=== PATIENT | male | born 1980 | race Caucasian/White ===

== ENCOUNTER → 2020-09-13 14:10 | Outpatient (CLI) | payer OTHER, SELFPAY ==
[2020-09-13 14:51] LABS: COVID19 -Nasal RAPID Negative (Negative)
== END ==
PROVIDERS: Visit Provider Family Medicine Sleep Medicine
DX: Z01.812 Encounter for preprocedural laboratory examination (principal); Z20.828 Contact with and (suspected) exposure to other viral communicable diseases
CPT/HCPCS: 87635; C9803

== ENCOUNTER → 2021-05-07 15:53 | Outpatient (CLI) | payer OTHER, SELFPAY ==
--- NOTE | 2021-05-07 | DI.ECHO.S_ITS ---
[facility]---------+ [facility] +---------+ : : [address] : [address] [address] : : : : [id number] : : : : Phone: [phone]+ Echocardiogram Report + + :Name: SHELL BROWN Study Date: 05/07/2021 Height: 71 in : :[facility] ReadingLocation: Weight: 170 lb : : Gender: Male BSA: 2.0 m2 : :: 1980 Age: 41 yrs BP: 113/78 mmHg: :Reason For Study: GENERAL ADULT EXAMINATION : :Ordering Physician: FELI THAO : :DEONTE VALDOVINOS Performed By: Polly Razo : :Referring: FELI THAO MD : + + Interpretation Summary The left ventricle is normal in size and wall thickness. Left ventricular systolic function appears normal without focal wall motion abnormalities. The ejection fraction is estimated to be 60-65%. Left ventricular global longitudinal strain average is -20.2%. Diastolic parameters suggest probable normal left ventricular diastolic function and normal filling pressures. The right ventricle is normal in size and function. Pulmonary artery pressures cannot be estimated because of the lack of a measurable TR jet velocity but the IVC suggests a CVP of around 3 mmHg. The left atrial size is normal. Right atrial size is normal. There is mild mitral regurgitation. There is no significant valvular heart disease. The aortic root is normal size. Procedure: A two-dimensional transthoracic echocardiogram with color flow and Doppler was performed. The study quality was technically adequate. There is no prior echocardiogram noted for this patient. The patient was in sinus bradycardia with heart rates between 46-57 bpm during the exam. Left Ventricle: The left ventricle is normal in size and wall thickness. Left ventricular systolic function appears normal without focal wall motion abnormalities. The ejection fraction is estimated to be 60-65%. Left ventricular global longitudinal strain average is -20.2%. Diastolic parameters suggest probable normal left ventricular diastolic function and normal filling pressures. Right Ventricle: The right ventricle is normal in size and function. Atria: The left atrial size is normal. Right atrial size is normal. There is no Doppler evidence for an interatrial shunt. Mitral Valve: The mitral valve is normal in structure and function. There is mild mitral regurgitation. Aortic Valve: The aortic valve is trileaflet. The aortic valve opens well. There is no aortic valve stenosis. No aortic regurgitation is present. Tricuspid Valve: The tricuspid valve is normal in structure and function. There is mild tricuspid regurgitation. Pulmonary artery pressures cannot be estimated because of the lack of a measurable TR jet velocity but the IVC suggests a CVP of around 3 mmHg. Pulmonic Valve: The pulmonic valve leaflets are thin and pliable; valve motion is normal. There is no pulmonic valvular regurgitation. There is no significant valvular heart disease. Great Vessels: The aortic root is normal size. The dimensions of the ascending aorta are normal. The IVC is of normal diameter and collapses greater than 50% with a sniff. This suggests a low right atrial pressure of 3 mm Hg. Pericardium/ Pleura There is no pericardial effusion. There is no pleural effusion. MMode/2D Measurements & Calculations LVIDd: 5.0 cm LVOT diam: 2.0 cm LVIDs: 3.6 cm Ao root diam: 2.6 cm FS: 28.6 % asc Aorta Diam: 2.5 cm IVSd: 0.66 cm Ao Arch Diam (Prox Trans): 2.4 cm LVPWd: 0.77 cm LV arizmendi. diameter/BSA (cm/m^2): 2.6 LV sys. diameter/BSA (cm/m^2): 1.8 LA A2 area: 16.8 cm2 RA long axis: 4.9 cm LA A4 area: 17.7 cm2 RA area: 16.6 cm2 LA length (vol): 4.9 cm RA vol: 48.4 ml LA vol: 51.2 ml RA : 24.6 ml/m2 LA vol index: 26.0 ml/m2 IVC diam: 1.8 cm RVD1 (basal): 4.0 cm TAPSE: 2.3 cm Doppler Measurements & Calculations Ao V2 max: 97.2 cm/sec LVOT Max Fabio: 86.4 cm/sec Ao V2 mean: 67.7 cm/sec LV V1 max P.0 mmHg Ao max P.8 mmHg LV V1 VTI: 19.0 cm Ao mean P.0 mmHg HAMILTON(I,D): 2.9 cm2 Ao V2 VTI: 20.9 cm HAMILTON(V,D): 2.8 cm2 sev ratio: 0.91 HAMILTON indexed to BSA (cm^2/m^2): 1.4 MV E max fabio: 88.5 cm/sec PA V2 max: 89.5 cm/sec MV A max fabio: 51.8 cm/sec PA V2 mean: 62.8 cm/sec MV E/A: 1.7 PA mean P.8 mmHg Med Peak E' Faboi: 13.2 cm/sec PA pr(Accel): 37.9 mmHg E/E' med: 6.7 Lat Peak E' Fabio: 15.2 cm/sec E/E' lat: 5.8 E/e' average: 6.3 MV dec time: 0.15 sec SV(LVOT): 59.5 ml Reading Physician:[id number] PM
== END ==
PROVIDERS: Referring Provider Family Medicine; Visit Provider Family Medicine
DX: I08.1 Rheumatic disorders of both mitral and tricuspid valves (principal)
CPT/HCPCS: 93306

== ENCOUNTER → 2022-04-02 09:27 | Outpatient (CLI) | payer OTHER, SELFPAY ==
[2022-04-02 10:57] LABS: Alanine Aminotransferase 10 IU/L (<50); Albumin 4.4 g/dL (3.5-5.0); Albumin Globulin Ratio 1.5 (1.0-2.8); Alkaline Phosphatase 35 U/L (38-126); Aspartate Aminotransferase 29 IU/L (17-59); BUN Creatinine Ratio 21.8 (6-22); Bilirubin Total 1.4 mg/dL (0.2-1.3); Blood Urea Nitrogen 17 mg/dL (9-20); Calcium 8.6 mg/dL (8.4-10.2); Carbon Dioxide 31 mmol/L (22-32); Chloride 100 mmol/L (98-107); Cholesterol 232 mg/dL (140-199); Estimated Glomerular Filt Rate > 60 mL/min (>60); Glucose 87 mg/dL (70-100); HDL Cholesterol 56 mg/dL (40-60); LDL Cholesterol Calculated 155 mg/dL (<100); Potassium 4.8 mmol/L (3.4-5.1); Sodium 138 mmol/L (137-145); Total Protein 7.4 g/dL (6.3-8.2); Triglycerides 104 mg/dL (35-150)
[2022-04-02 11:13] LABS: HEMOLYSIS 56 (0-50)
[2022-04-02 11:22] LABS: TSH w/ Reflex to FT4 1.01 uIU/mL (0.47-4.68)
[2022-04-10 14:24] LABS: Percent Free Testosterone 2.52 % (1.50-4.20); Testosterone Free 16.81 ng/dL (5.00-21.00); Testosterone Total 667.2 ng/dL (264.0-916.0)
== END ==
PROVIDERS: PCP Internal Medicine; Referring Provider Internal Medicine; Visit Provider Internal Medicine
DX: G89.29 Other chronic pain (principal); M54.9 Dorsalgia, unspecified; N52.9 Male erectile dysfunction, unspecified; R51.9 Headache, unspecified; Z13.6 Encounter for screening for cardiovascular disorders
CPT/HCPCS: 36415; 80053; 80061; 84402; 84403; 84443

== ENCOUNTER → 2023-10-12 17:02 | Outpatient (CLI) | payer OTHER, SELFPAY ==
--- NOTE | 2023-10-12 17:03 | DI.RAD.S_ITS ---
PROCEDURE: XR CHEST 2V INDICATIONS: pleuritic chest pain TECHNIQUE: 2 views of the chest were acquired. COMPARISON: None. FINDINGS: Surgical changes and devices: None. Lungs and pleura: Lungs are clear. No pleural effusions or pneumothorax. Mediastinum: Mediastinal contours are normal. Heart size is normal. Bones and chest wall: No suspicious bony abnormalities. Soft tissues appear unremarkable. IMPRESSION: No acute cardiopulmonary abnormality is seen. Dictated by: Ren Marino M.D. on 10/13/2023 at 9:41 Approved by: Ren Marino M.D. on 10/13/2023 at 9:42
== END ==
LOC: RAD 17:03
PROVIDERS: PCP Internal Medicine; Referring Provider Internal Medicine; Visit Provider Internal Medicine
DX: R07.81 Pleurodynia (principal)
CPT/HCPCS: 71046